=== PATIENT | male | born 2000 | race African-American/Black ===

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

== ENCOUNTER 2019-07-26 17:42 | Emergency (ER) | payer SELFPAY ==
[~2019-07-26] VITALS: Ht 172.7 cm; Wt 60.3 kg
[~2019-07-26 17:42] MED LIST changes: +ADULT WAL-100 MG/5 M ORAL; +IBUPROFEN600 MG ORAL
[2019-07-26 17:56] VITALS: BP 120/66
[2019-07-26 18:03] VITALS: BP 120/66
--- NOTE | 2019-07-26 18:04 | NUR ---
ED Nurse Note:pt. came with c/o sore throat
--- NOTE | 2019-07-26 18:23 | Emergency Room Report ---
History of Present Illness General Chief Complaint: Sore Throat Source: Patient Present Illness HPI 18 yo male presents to the ED c/o 01/[address] with associated subjective fevers and chills. Pt. reports pain is so severe to swallow that he is spitting out his saliva. Denies wheezing or swelling of the lips or tongue. Pt. reports symptoms began 2 days ago. 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 Denies GONZALES, changes in voice, cough , nasal congestion or rhinorrhea. Denies neck pain /stiffness. no other aggravating or relieving factors at this time. Allergies: Coded Allergies: No Known Allergies (Unverified , 03/26/12) Patient History Past Medical History: see triage record Past Surgical History: none Pertinent Family History: none Immunizations: UTD Reviewed Nursing Documentation: PMH: Agreed; PSxH: Agreed Nursing Documentation-PMH Past Medical History: No History, Except For Hx Asthma: Yes Review of Systems All Other Systems: negative except mentioned in HPI Physical Exam Vital Signs Date Time Temp Pulse Resp B/P (MAP) Pulse Ox O2 Delivery O2 Flow Rate FiO2 07/26/19 17:56 99.3 16 120/66 96 Room Air 07/26/19 17:56 97 Sp02 EP Interpretation: reviewed, normal General Appearance: no apparent distress, alert, GCS 15, non-toxic Head: normocephalic, atraumatic Eyes: bilateral eye normal inspection, bilateral eye PERRL ENT: hearing grossly normal, normal voice, TMs + canals normal, uvula midline, moist mucus membranes, tonsillar swelling, pharyngeal erythema, tonsillar exudate Neck: full range of motion, no meningismus Respiratory: lungs clear, normal breath sounds, speaking full sentences Cardiovascular #1: regular rate, rhythm Musculoskeletal: normal range of motion, gait/station normal, non-tender Neurologic: alert, motor strength/tone normal, oriented x3, sensory intact, responsive, speech normal Psychiatric: judgement/insight normal Skin: no rash, normal color Medical Decision Making PA Attestation Dr. Lynch is my supervising Physician whom patient management has been discussed with. Diagnostic Impression: Primary Impression: Acute streptococcal pharyngitis ER Course 18 yo male presents to the ED c/o 03/[address] with associated subjective fevers and chills. Pt. reports pain is so severe to swallow that he is spitting out his saliva. Denies wheezing or swelling of the lips or tongue. Pt. reports symptoms began 2 days ago. 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 Denies GONZALES, changes in voice, cough , nasal congestion or rhinorrhea. Denies neck pain /stiffness. no other aggravating or relieving factors at this time. Ddx considered but are not limited to: pharyngitis, strep, GRANTS ADMINISTRATOR, ludwigs angina, URI Vital signs: are WNL, pt. is afebrile H&PE are most consistent with: pharyngitis presumed strep. ORDERS: None required at this time as the diagnosis is clinical ED INTERVENTIONS: -Lidocaine PO -8mg Decadron IM DISCHARGE: At this time pt. is stable for d/c to home. Will provide printed patient care instructions, and any necessary prescriptions. Care plan and follow up instructions have been discussed with the patient prior to discharge. Last Vital Signs Date Time Temp Pulse Resp B/P (MAP) Pulse Ox O2 Delivery O2 Flow Rate FiO2 07/26/19 18:03 99.3 68 16 120/66 96 Room Air Disposition: HOME, SELF-CARE Condition: Stable Scripts Ibuprofen* (MOTRIN*) 600 Mg Tablet 600 MG ORAL THREE TIMES A DAY, #30 TAB 0 Refills Prov: Tricia Mendiola 07/26/19 Lidocaine HCl 2% Viscous (Lidocaine HCl 2% Viscous) 100 Ml Solution 10 ML ORAL QID, #220 ML Prov: Tricia Mendiola 07/26/19 Amoxicillin* (AMOXIL*) 500 Mg Capsule 500 MG ORAL Q12HR for 10 Days, #20 CAP Prov: Tricia Mendiola 07/26/19 Patient Instructions: Strep Throat Additional Instructions: Take medications as directed. Follow up with a Primary Care Provider in 3-5 days, even if your symptoms have resolved. Return sooner to ED if new symptoms occur, or current symptoms become worse. - Please note that this Emergency Department Report was dictated using Shoettebattery repairer technology software, occasionally this can lead to erroneous entry secondary to interpretation by the dictation equipment. Tricia Mendiola Jul 26, 2019 18:23
[2019-07-26] MEDS ORDERED: Dexamethasone 4mg/ml vial IM ONE (18:30)
[2019-07-26] MEDS ORDERED: Lidocaine 2% Visc 15ml soln ORAL ONE (18:30)
[2019-07-26] MEDS ORDERED: LIDOCAINE VISC100 ML ORAL (18:43)
[2019-07-26] MEDS ORDERED: IBUPROFEN600 MG ORAL (18:43)
[2019-07-26] MEDS ORDERED: AMOXICILLIN500 MG ORAL (18:43)
[2019-07-26 18:50] VITALS: BP 120/66
--- NOTE | 2019-07-26 18:50 | NUR ---
ER DISCHARGE NOTE: Patient is cleared to be discharged per ERMD, pt is aox4, on room air, with stable vital signs. pt was given dc and prescription instructions, pt was able to verbalize understanding, pt is able to ambulate with steady gait. pt took all belongings.
== END 2019-07-26 18:50 | disposition home or self-care (01) ==
LOC: EMR 18:42
DX: J02.0 Streptococcal pharyngitis (principal); J45.909 Unspecified asthma, uncomplicated
CPT/HCPCS: 96372; 99283; J1100